=== PATIENT | female | born 1985 | race Caucasian/White ===

== ENCOUNTER → 2018-05-08 | Outpatient (CLI) | payer OTHER ==
--- NOTE | 2018-05-08 13:23 | RADIOLOGY REPORT (SQ) ---
EXAM DESCRIPTION: T SPINE AP/LAT COMPLETED DATE/TIME: 05/08/2018 12:51 pm REASON FOR STUDY: BACK PAIN COMPARISON: None. NUMBER OF VIEWS: Two views. TECHNIQUE: AP and lateral radiographic images acquired of the thoracic spine. LIMITATIONS: None. FINDINGS: MINERALIZATION: Normal. ALIGNMENT: Normal. No scoliosis. VERTEBRAE: No fracture or bone lesion. Maintained height, normal segmentation. DISCS: No significant loss of height or significant narrowing. No large osteophytes. HARDWARE: None in the spine. MEDIASTINUM AND SOFT TISSUES: Normal heart size and aortic contour. No soft tissue abnormality. VISUALIZED LUNG GARNICA: Clear. OTHER: No other significant finding. IMPRESSION: NO SIGNIFICANT RADIOGRAPHIC FINDING IN THE THORACIC SPINE. TECHNICAL DOCUMENTATION: JOB ID: [id number] [employer]- All Rights Reserved Reading location - IP/workstation name: [email or web address]
--- NOTE | 2018-05-08 13:31 | RADIOLOGY REPORT (SQ) ---
EXAM DESCRIPTION: L SPINE WHOLE COMPLETED DATE/TIME: 05/08/2018 12:51 pm REASON FOR STUDY: BACK PAIN COMPARISON: None. NUMBER OF VIEWS: Four views including obliques. TECHNIQUE: AP, lateral, and oblique radiographic images acquired of the lumbar spine. LIMITATIONS: None. FINDINGS: MINERALIZATION: Normal. SEGMENTATION: Normal. No transitional anatomy. ALIGNMENT: Normal. VERTEBRAE: Maintained height. No fracture or worrisome bone lesion. DISCS: Preserved height. No significant osteophytes or end plate irregularity. POSTERIOR ELEMENTS: Pedicles and facets are intact. No pars defect or posterior arch defects. HARDWARE: None in the spine. PARASPINAL SOFT TISSUES: Normal. PELVIS: Intact as visualized. No fractures or worrisome bone lesions. SI joints intact. OTHER: No other significant finding. IMPRESSION: NORMAL 5 VIEW LUMBAR SPINE. TECHNICAL DOCUMENTATION: JOB ID: [id number] [employer]- All Rights Reserved Reading location - IP/workstation name: [email or web address]
== END ==
LOC: RAD 11:16
PROVIDERS: ATTEND Nurse Practitioner
DX: M54.6 Pain in thoracic spine (principal); M54.5 Low back pain
CPT/HCPCS: 72070; 72110

== ENCOUNTER → 2019-01-31 | Outpatient (CLI) | payer OTHER ==
--- NOTE | 2019-01-31 10:21 | RADIOLOGY REPORT (SQ) ---
EXAM DESCRIPTION: MRI LT LOWER JOINT WITHOUT COMPLETED DATE/TIME: 01/31/2019 8:09 am REASON FOR STUDY: PAIN IN LEFT KNEE (M25.562) M25.561 PAIN IN RIGHT KNEE COMPARISON: None. TECHNIQUE: Leftknee images acquired and stored on PACS. Multiplanar images include fat sensitive se quences as T1, water sensitive sequences as FST2 or STIR, cartilage sensitive sequences as FSPD, and gradient echo sequences. LIMITATIONS: None. FINDINGS: JOINT AND BURSAE: No effusion. No Garnica's cyst BONE CORTEX AND MARROW: A well-circumscribed medullary space benign-appearing chondroid lesion is pre sent in the fibular head, 11 mm in greatest diameter. This is best shown on sagittal image 18 and co luzma image 23 ACL: Intact. No degeneration or ganglion cyst. PCL: Intact. MCL: Intact. No periligamentous edema or fluid. LCL: Intact. No periligamentous edema or fluid. MEDIAL MENISCUS: No tears. No abnormal signal. LATERAL MENISCUS: No tears. No abnormal signal. MEDIAL COMPARTMENT: Cartilage preserved. No bone bruises or reactive marrow edema. No osteophytes. LATERAL COMPARTMENT: Cartilage preserved. No bone bruises or reactive marrow edema. No osteophytes. PATELLA: Lateral patellar facet chondromalacia, mild, best shown on axial image 9. There is lateral subluxation of the patella with respect to the distal femur best shown on axial images 8-12. No subc hondral cysts. Medial and lateral retinacula intact. EXTENSOR MECHANISM: Intact. Quadriceps and patella tendons normal. SOFT TISSUES: Adjacent muscles and subcutaneous tissues normal. Normal flow void in popliteal artery and vein. OTHER: No other significant finding. IMPRESSION: Lateral subluxation of the patella with respect to the distal femur. Mild chondromalaci a in the lateral patellar with fat. Incidental finding of an 11 mm benign-appearing chondroid lesion in the left fibular head. TECHNICAL DOCUMENTATION: JOB ID: [id number] [employer]- All Rights Reserved Reading location - IP/workstation name: [email or web address]
== END ==
LOC: RAD 06:57
PROVIDERS: ATTEND Orthopaedic Surgery Sports Medicine
DX: M25.562 Pain in left knee (principal); M22.42 Chondromalacia patellae, left knee

== ENCOUNTER 2019-09-23 06:35 | Emergency (ER) | payer OTHER ==
[2019-09-23 07:13] LABS: APPEARANCE,URINE CLEAR; BILIRUBIN,URINE NEGATIVE (NEGATIVE); COLOR,URINE YELLOW; GLUCOSE, URINE NEGATIVE (NEGATIVE); KETONES,URINE NEGATIVE (NEGATIVE); LEUKOCYTE ESTERASE,URINE NEGATIVE (NEGATIVE); NITRITE,URINE NEGATIVE (NEGATIVE); PROTEIN,URINE NEGATIVE (NEGATIVE); URINE SPECIFIC GRAVITY 1.019; UROBILINOGEN,URINE NEGATIVE mg/dL (<2.0)
[2019-09-23 07:45] LABS: ALBUMIN 4.5 g/dL (3.5-5.0); ALKALINE PHOSPHATASE 39 U/L (38-126); ANION GAP 7 (5-19); ASPARTATE AMINO TRANSFERASE 19 U/L (14-36); BILIRUBIN,TOTAL 2.9 mg/dL (0.2-1.3); BLOOD UREA NITROGEN 12 mg/dL (7-20); CALCIUM 9.5 mg/dL (8.4-10.2); CARBON DIOXIDE 22 mmol/L (22-30); CHLORIDE 110 mmol/L (98-107); GLUCOSE 85 mg/dL (75-110); POTASSIUM 4.3 mmol/L (3.6-5.0); TOTAL PROTEIN 7.4 g/dL (6.3-8.2)
[2019-09-23 08:01] LABS: ABSOLUTE BASOPHILS # (AUTO) 0.1 10^3/uL (0.0-0.2); ABSOLUTE EOSINOPHILS # (AUTO) 0.1 10^3/uL (0.0-0.6); ABSOLUTE LYMPHOCYTES (AUTO) 1.6 10^3/uL (0.5-4.7); ABSOLUTE MONOCYTES (AUTO) 0.4 10^3/uL (0.1-1.4); ABSOLUTE NEUT (AUTO) 4.3 10^3/uL (1.7-8.2); BASOPHILS % (AUTO) 0.9 % (0-2); EOSINOPHILS % (AUTO) 1.9 % (0-6); HEMOGLOBIN 12.1 g/dL (12.0-15.5); LYMPHOCYTES % (AUTO) 24.1 % (13-45); MEAN CORPUSCULAR HEMOGLOBIN 19.5 pg (27.0-33.4); MEAN CORPUSCULAR HGB CONC 32.6 g/dL (32.0-36.0); PLATELET COUNT 196 10^3/uL (150-450); RED CELL DISTRIBUTION WIDTH 16.2 % (11.5-14.0); SEGMENTED NEUTROPHILS % (AUTO) 67.1 % (42-78); TOTAL CELLS COUNTED % (AUTO) 100 %; WHITE BLOOD COUNT 6.5 10^3/uL (4.0-10.5)
[2019-09-23 08:12] LABS: MEAN CORPUSCULAR VOLUME 60 fl (80-97)
[2019-09-23] MEDS ORDERED: RINGERS SOLUTION,LACTATED 1,000 ML IV ONE (08:17)
[2019-09-23 08:19] LABS: ANISOCYTOSIS 1+; OVALOCYTES SLIGHT; POLYCHROMASIA SLIGHT
[2019-09-23 08:20] LABS: HYPOCHROMASIA 1+; PLATELET CLUMPS PRESENT; PLATELET COMMENT ADEQUATE; TEAR DROP CELLS SLIGHT
[2019-09-23] MEDS ORDERED: DEXTROSE 5%-LACTATED RINGERS 1,000 ML IV ONE (10:20)
[2019-09-23] MEDS ORDERED: KETOROLAC TROMETHAMINE INJ/PF 30 MG/1 ML SDV IV ONE (10:22)
--- NOTE | 2019-09-23 11:52 | RADIOLOGY REPORT (SQ) ---
EXAM DESCRIPTION: ABDOMEN 2 VIEWS COMPLETED DATE/TIME: 09/23/2019 10:52 am REASON FOR STUDY: lower abdominal pain COMPARISON: None. NUMBER OF VIEWS: Two views. TECHNIQUE: Supine and erect/decubitus radiographic images of the abdomen acquired. LIMITATIONS: None. FINDINGS: FREE AIR: None. No abnormal gas collections. LUNG BASES: Clear. BOWEL GAS PATTERN: Nonobstructive pattern. No dilated loops or air fluid levels. Moderate formed sto ol within the ascending colon. CALCIFICATIONS: No suspicious calcifications. SOFT TISSUES: No gross mass or suggestion of organomegaly. HARDWARE: None in the abdomen. BONES: No acute fracture. No worrisome bone lesions. OTHER: No other significant finding. IMPRESSION: NO RADIOGRAPHIC EVIDENCE FOR ACUTE ABDOMINAL DISEASE. MODERATE FORMED STOOL WITHIN THE ASCENDING COLON. TECHNICAL DOCUMENTATION: JOB ID: [id number] [employer]- All Rights Reserved Reading location - IP/workstation name: [email or web address]
--- NOTE | 2019-09-23 13:07 | RADIOLOGY REPORT (SQ) ---
EXAM DESCRIPTION: U/S ABDOMEN LIMITED W/O DOP COMPLETED DATE/TIME: 09/23/2019 12:55 pm REASON FOR STUDY: elevated bilirubin COMPARISON: Dominant ultrasound 09/01/2012 CT abdomen pelvis 08/26/2015 Three-way abdomen series 09/23/2019 TECHNIQUE: Dynamic and static grayscale images acquired of the abdomen and recorded on PACS. Additio nal selected color Doppler and spectral images recorded. LIMITATIONS: None. FINDINGS: PANCREAS: Midline pancreas unremarkable LIVER: No masses. Echotexture normal. LIVER VASCULATURE: Normal directional flow of the main portal vein and hepatic veins. GALLBLADDER: Multiple tiny stones layer dependently in the gallbladder. No gallbladder wall thickeni ng or pericholecystic fluid. ULTRASOUND-DETECTED REILLY'S SIGN: Negative. INTRAHEPATIC DUCTS AND COMMON DUCT: Common bile duct at the sonal hepatis 6 mm. Distal most common d uct not well seen due to duodenum gas. Distal ductal stone could not be excluded. INFERIOR VENA CAVA: Normal flow. AORTA: No aneurysm. RIGHT KIDNEY: Normal size. Normal echogenicity. No solid or suspicious masses. No hydronephrosis. No calcifications. PERITONEAL AND RIGHT PLEURAL SPACE: No ascites or effusions. OTHER: No other significant findings. IMPRESSION: Multiple tiny stones in the gallbladder. No gross gallbladder wall thickening or perich olecystic fluid. Distal common duct not well seen. Distal ductal stone could not be excluded. TECHNICAL DOCUMENTATION: JOB ID: [id number] [employer]- All Rights Reserved Reading location - IP/workstation name: [email or web address]
[2019-09-23 13:30] LABS: PATH REVIEW PATHOLOGIST REVIEWED
[2019-09-23] MEDS ORDERED: MORPHINE SULFATE 10 MG/ML INJ IV ONE ×2 (13:44→17:12)
[2019-09-23] MEDS ORDERED: ONDANSETRON HCL INJ/PF 4 MG/2 ML SDV IV ONE ×2 (13:45→17:12)
[2019-09-23] MEDS ORDERED: DEXTROSE 5%-NORMAL SALINE 1,000 ML IV ONE (14:44)
--- NOTE | 2019-09-23 16:54 | PDOC CONSULTATION ---
Consultation Consult Date: 09/23/19 Provider Consulted: SHLOMO CHANG Consult reason:: Back pain and lower abdominal pain History of Present Illness Admission Date/PCP: LEEROY GOLD History of Present Illness: HOANG STALLINGS is a 34 year old female, healthy, without past medical history except for uterine surgery, who comes today complaining of sudden onset of right lower back pain, located to the midline, the patient reports the pain is also radiated to the lower abdomen, she denies pain with urination, hematuria, fever, chills, night sweats. She reports the onset of multiple episodes of nausea this morning. She denies to experiencing similar pain in the past. She denies pain with urination. An ultrasound of the abdomen was done revealing few gallstones without gallbladder complications, her blood work is within normal limits except for isolated alexis-bilirubinemia 2.9 (all unconjugated): Her urinalysis reveals a small amount of blood. Past Medical History Cardiac Medical History: Denies: Coronary Artery Disease, Myocardial Infarction, Hypertension Pulmonary Medical History: Denies: Asthma, Bronchitis, Chronic Obstructive Pulmonary Disease (COPD), Pneumonia Musculoskeltal Medical History: Denies: Arthritis Hematology: Reports: Anemia Social History Smoking Status: Never Smoker Family History Family History: Reviewed & Not Pertinent Family History: Cancer Parental Family History Reviewed: No Children Family History Reviewed: No Sibling(s) Family History Reviewed.: No Medication/Allergy Home Medications: Ibuprofen [Motrin 800 mg Tablet] 800 PO Q8 12/12/12 Pnv W-O Ca No5/Fe Fumarate/FA [-U Capsule] 1 cap PO DAILY 12/12/12 Ondansetron [Zofran Odt 4 mg Tablet] 1 - 2 tab PO Q4H PRN #15 tab.rapdis 04/19/13 Oxycodone HCl 5 mg PO Q6H PRN #20 tablet 04/19/13 Tramadol HCl 50 mg PO PRN 04/19/13 Hydrocodone/Acetaminophen [[place] 7.5-325 Tablet] 1 each PO Q6HP PRN #20 tablet 08/26/15 Allergies/Adverse Reactions: latex [Latex] Allergy (Intermediate, Verified 04/19/13 17:20) Pruritis Physical Exam Vital Signs: Temp Pulse Resp BP Pulse Ox 98.1 F 89 17 125/69 94 09/23/19 09:14 09/23/19 09:14 09/23/19 09:14 09/23/19 09:14 09/23/19 09:14 Intake & Output 09/22/19 09/23/19 09/24/19 06:59 06:59 06:59 Intake Total 1999 Balance 1999 Weight 87.7 kg General appearance: PRESENT: no acute distress, obese, well-developed, well- nourished Head exam: PRESENT: atraumatic, normocephalic Eye exam: PRESENT: EOMI Mouth exam: PRESENT: neck supple Neck exam: PRESENT: full ROM Respiratory exam: PRESENT: clear to auscultation jefe Cardiovascular exam: PRESENT: RRR GI/Abdominal exam: PRESENT: Fitzpatrick's sign, soft - Not distended, not tender, no guarding or grimacing. ABSENT: other - Back = presence of severe tenderness at the level of the lumbar area in the paramedian area with guarding and torsion Rectal exam: PRESENT: deferred Extremities exam: PRESENT: full ROM Musculoskeletal exam: PRESENT: full ROM Neurological exam: PRESENT: alert, awake, oriented to time, CN II-XII grossly intact Skin exam: PRESENT: warm Results Laboratory Results: 09/23/19 07:10 09/23/19 07:10 09/23/19 09/23/19 09/23/19 06:45 07:10 07:10 WBC 6.5 RBC 6.20 H Hgb 12.1 Hct 37.0 MCV 60 L MCH 19.5 L MCHC 32.6 RDW 16.2 H Plt Count 196 Seg Neutrophils % 67.1 Sodium 139.1 Potassium 4.3 Chloride 110 H Carbon Dioxide 22 Anion Gap 7 BUN 12 Creatinine 0.64 Est GFR ( Amer) > 60 Glucose 85 Calcium 9.5 Total Bilirubin 2.9 H AST 19 Alkaline Phosphatase 39 Total Protein 7.4 Albumin 4.5 Lipase 49.7 Urine Color YELLOW Urine Appearance CLEAR Urine pH 5.0 Ur Specific [place] 1.019 Urine Protein NEGATIVE Urine Glucose (UA) NEGATIVE Urine Ketones NEGATIVE Urine Blood SMALL H Urine Nitrite NEGATIVE Ur Leukocyte Esterase NEGATIVE Urine WBC (Auto) 1 Urine RBC (Auto) 1 Impressions: Abdomen X-Ray 09/23/19 10:23 IMPRESSION: NO RADIOGRAPHIC EVIDENCE FOR ACUTE ABDOMINAL DISEASE. MODERATE FORMED STOOL WITHIN THE ASCENDING COLON. Abdomen Ultrasound 09/23/19 12:07 IMPRESSION: Multiple tiny stones in the gallbladder. No gross gallbladder wall thickening or pericholecystic fluid. Distal common duct not well seen. Distal ductal stone could not be excluded. Assessment & Plan - Diagnosis (1) Back pain Qualifiers: Back pain location: low back pain Chronicity: acute Back pain laterality: right Sciatica presence: without sciatica Qualified Code(s): M54.5 - Low b ack pain Is this a current diagnosis for this admission?: Yes (2) Lumbar pain determined by palpation Is this a current diagnosis for this admission?: Yes - Plan Summary Plan Summary: Assessment: Sudden onset of right low back pain in the lumbar area in the paramedian area, elicited on palpation of the muscular group Abdomen soft Negative Fitzpatrick maneuver Abdomen not distended, not tender Blood work within normal limits except for isolated hyperbilirubinemia Ultrasound of the liver reveals cholelithiasis, with negative physiCl exam, most likely incidental Plan: Patient does not present any surgical condition which might warrant any operation I am recommending that the patient undergoes a CT scan without and with venous contrast to rule out the possibility of a kidney stone or kidney condition Also, the possibility of back pain due to muscle spasm cannot be ruled out. Th is diagnosis should be done once the kidney pathology or other pathologies have been ruled out by CT scan. I will sign off.
--- NOTE | 2019-09-23 17:14 | RADIOLOGY REPORT (SQ) ---
EXAM DESCRIPTION: CT ABD/PELVIS COMBO COMPLETED DATE/TIME: 09/23/2019 4:50 pm REASON FOR STUDY: R. flank pain/hematuria/Incr. bilirubin GBstones COMPARISON: None. TECHNIQUE: CT scan of the abdomen and pelvis performed with and without intravenous contrast, and wi thout oral contrast. Contrasted imaging performed helical scanning technique and dynamic intravenous contrast injection. Images reviewed with lung, soft tissue, and bone windows. Reconstructed coronal a nd sagittal MPR images reviewed. Delayed images for evaluation of the urinary system also acquired. A ll images stored on PACS. All CT scanners at this facility use dose modulation, iterative reconstruction, and/or weight based d osing when appropriate to reduce radiation dose to as low as reasonably achievable (ALARA). [facility]: Dose Right [facility]: CareDose [facility]: Dose Right [facility]: Teradose 4D [facility]: [employer] CONTRAST TYPE AND DOSE: contrast/concentration: Isovue 350.00 mg/ml; Total Contrast Delivered: 100.0 ml; Total Saline Delivered: 72.0 ml RENAL FUNCTION: Creatinine 0.64 RADIATION DOSE: CT Rad equipment meets quality standard of care and radiation dose reduction techniq ues were employed. CTDIvol: 11.2 - 14.7 mGy. DLP: 2114 mGy-cm. . LIMITATIONS: None. FINDINGS: NON-CONTRASTED IMAGING: No significant renal or bladder calcifications. No other significa nt organ calcifications. POST-CONTRASTED IMAGING: LOWER CHEST: No significant findings. No nodules or infiltrates. LIVER: Normal size. No masses. No dilated ducts. SPLEEN: Normal size. No focal lesions. PANCREAS: No masses. No significant calcifications. No adjacent inflammation or peripancreatic fluid collections. Pancreatic duct not dilated. GALLBLADDER: Multiple tiny calcified stones in the gallbladder. No inflammatory changes to suggest ch olecystitis. ADRENAL GLANDS: No significant masses or asymmetry. RIGHT KIDNEY AND URETER: No solid masses. No significant calcifications. No hydronephrosis or hyd roureter. LEFT KIDNEY AND URETER: No solid masses. No significant calcifications. No hydronephrosis or hydr oureter. AORTA AND VESSELS: No aneurysm. No dissection. Renal arteries, SMA, celiac without stenosis. RETROPERITONEUM: No retroperitoneal adenopathy, hemorrhage or masses. BOWEL AND PERITONEAL CAVITY: No masses or inflammatory changes. No free fluid or peritoneal masses. APPENDIX: Normal, on coronal image 28. PELVIS: No mass. No adenopathy. Normal urinary bladder. Normal size uterus and ovaries. There is a moderate amount of near water density free cul-de-sacs fluid, and enhancing follicle remnant on the left ovary seen on axial image 70-73. Findings most likely represent a ruptured ovarian cyst, discu ssed with Dr. Castillo in the emergency room. ABDOMINAL WALL: No masses. No hernias. BONES: No significant or acute findings. OTHER: No other significant finding. IMPRESSION: Free cul-de-sac fluid with probable ruptured left ovarian follicle remnant. Multiple tiny calcified stones in the gallbladder. No intrahepatic biliary ductal dilatation. Otherwise unremarkable CT of the abdomen and pelvis without and with IV contrast TECHNICAL DOCUMENTATION: JOB ID: [id number] Quality ID # [id number]: Final reports with documentation of one or more dose reduction techniques (e.g., Au tomated exposure control, adjustment of the mA and/or kV according to patient size, use of iterative reconstruction technique) 2010 [employer]- All Rights Reserved Reading location - IP/workstation name: [email or web address]
[2019-09-23 17:59] VITALS: BP 127/67
--- NOTE | 2019-09-24 13:35 | ER Document Report ---
Entered by ELIJAH PETERSON SCRIBE 09/23/19 0741 Acting as scribe for:ANTONY JIMÉNEZ MD ED GI/ - General Chief Complaint: Vomiting Stated Complaint: ABDOMINAL Primary Care Provider: BISHNU GARCIA MD [NO LOCAL MD] - Follow up as needed Mode of Arrival: Ambulatory Information source: Patient Notes: This 34-year-old female patient presents to the emergency department today with complaints of a migraine headache for the last few days with associated nausea and vomiting which began yesterday. Patient states she feels like she is dehydrated. Patient also complains of lower abdominal cramping. Patient states she becomes dizzy when she vomits. Patient states she has had migraines for several years and they sometimes are accompanied with this nausea and vomiting. Patient states "the reason I came in today is because of the abdominal cramping, it scared me", stating that she has never had this happen before. Patient denies any nasal congestion, vaginal bleeding, or vaginal discharge. Pertinent PMHx/PSHx: Migraines - additional PMHx/PSHx not pertinent to this visit as recorded. PCP: [facility] TRAVEL OUTSIDE OF THE [place] IN LAST 30 DAYS: No - Related Data Allergies/Adverse Reactions: latex [Latex] Allergy (Intermediate, Verified 04/19/13 17:20) Pruritis Past Medical History - General Information source: Patient - Social History Smoking Status: Never Smoker Cigarette use (# per day): No Frequency of alcohol use: None Drug Abuse: None Lives with: Family Family History: Reviewed & Not Pertinent Patient has suicidal ideation: No Patient has homicidal ideation: No Neurological Medical History: Reports: Hx Migraine GI Medical History: Reports: Hx Ulcer Past Surgical History: Reports: Hx Dilation and Curettage - Immunizations Immunizations up to date: Yes Hx Diphtheria, Pertussis, Tetanus Vaccination: Yes Review of Systems - Review of Systems Constitutional: See HPI, Other - thinks she is dehydrated EENT: denies: Nose congestion Cardiovascular: See HPI, Dizziness Respiratory: No symptoms reported Gastrointestinal: See HPI, Nausea, Vomiting, Other - abdominal cramps Genitourinary: No symptoms reported Female Genitourinary: denies: Vaginal discharge, Vaginal bleeding Musculoskeletal: No symptoms reported Skin: No symptoms reported Hematologic/Lymphatic: No symptoms reported Neurological/Psychological: See HPI, Headaches -: Yes All other systems reviewed and negative Physical Exam - Vital signs Vitals: Temp Pulse Resp BP Pulse Ox 98.6 F 89 16 132/88 H 99 09/23/19 06:39 09/23/19 06:39 09/23/19 06:39 09/23/19 06:39 09/23/19 06:39 - Notes Notes: Physical Exam: General: Alert, appears well. HEENT: Normocephalic. Atraumatic. PERRL. Extraocular movements intact. Or opharynx clear. Left TM is normal in appearance, Serous effusion on the right. Tonsillar pillars are erythematous without lymphadenopathy, exudate, or tonsillar hypertrophy. Neck: Supple. Non-tender. Respiratory: No respiratory distress. Clear and equal breath sounds bilaterally. Cardiovascular: Regular rate and rhythm. Abdominal: Normal Inspection. Non-tender. No distension. Normal Bowel Sounds. Back: No gross abnormalities. Extremities: Moves all four extremities. Upper extremities: Normal inspection. Normal ROM. Lower extremities: Normal inspection. No edema. Normal ROM. Neurological: Normal cognition. AAOx4. Normal speech. Psychological: Normal affect. Normal Mood. Skin: Warm. Dry. Normal color. Course - Re-evaluation Re-evalutation: 09/23/19 14:[address] Villalta the surgical list of the day who will be in to see the patient regarding her elevated bilirubin. Ultrasound did disclose the patient has multiple tiny gallstones present and also the bile duct was not well visualized. There is no evidence for acute cholecystitis with a normal bladder wall without thickening and no pericholecystic fluid seen. Per discussion with Dr. Villalta he is going to evaluate patient and perhaps get the nuclear instructor involved because his opinion is that patient perhaps has a medical reason for her elevated bilirubin. 09/23/19 16:17 Patient has been seen by Dr. Villalta, surgical is who requested patient have further scans done including abdomen and pelvis without contrast then and abdomen and pelvis with contrast. The goal is to determine the patient has kidney stones encountered G you problem and also to to determine if there is any biliary tree obstruction or gallbladder issues. 09/23/19 17:13 CT abdomen pelvis with and without contrast disclose cul-de-sac full of fluid consistent with the density of water and most likely due to a ruptured ovarian cyst follicle. There is no kidney stone or ureterolithiasis seen on CT scan no no swelling of the kidneys or dilated ureters. Also seen again as was seen on ultrasound gallbladder disease with cholelithiasis and no cholecystitis present no dilated biliary ducts. Most likely elevated bilirubin may be related to Gilbert's disease which patient is going to follow-up with her internal medicine doctor. Patient is also instructed to follow-up with her OB mill tender regarding her ruptured ovarian cyst. Patient will be given a work note x3 days and placed on anti-inflammatory and pain medications. 09/23/19 17:31 CT scan results were discussed with Dr. Villalta who is in agreement the patient does not have a surgical problem at this time. - Vital Signs Vital signs: Temp Pulse Resp BP Pulse Ox 98.1 F 89 17 125/69 94 09/23/19 09:14 09/23/19 09:14 09/23/19 09:14 09/23/19 09:14 09/23/19 09:14 - Laboratory Result Diagrams: 09/23/19 07:10 09/23/19 07:10 Laboratory results interpreted by me: 09/23/19 09/23/19 09/23/19 06:45 07:10 07:10 RBC 6.20 H MCV 60 L MCH 19.5 L RDW 16.2 H Chloride 110 H Total Bilirubin 2.9 H Urine Blood SMALL H - Transfer of Care Notes: 09/23/19 16:19 Dr. Timoteo Preciado is receiving patient and in transfer to follow-up on pending studies and to coordinate consult with Dr. Villalta, surgical list Discharge - Discharge Clinical Impression: Cholelithiasis, Abdominal pain, Hematuria, Elevated bilirubin, Ruptured cyst of ovary Condition: Good Disposition: HOME, SELF-CARE Instructions: Abdominal Pain ([facility]), Gallbladder Disease ([facility]), Antinausea Medication ([facility]) Additional Instructions: Recommend you to follow-up with your primary care doctor/physician's assistant regarding gallbladder disease and elevated bilirubin. Inasmuch as there is no evidence for any biliary tree obstruction the elevated bilirubin could be due to a medical cause such as Gilbert's disease. Abdominal Pain There are many causes of abdominal pain. Pain can mean a serious problem requiring surgery (such as appendicitis). It can also be an innocent problem that goes away on its own (such as a viral infection). Often, time must pass to determine the cause of pain. The physician does not feel that hospitalization is necessary, at present. Things may change within the next 24 hours. Call the doctor or come back for re- examination if any problems occur, such as: (1) Pain that becomes more severe, steady, or becomes concentrated in one specific area. Also, pain that is more severe with movement or coughing. (2) Vomiting that persists or becomes more frequent. (3) Blood in the vomitus, urine, or bowel movements. Blood in the stool may have a tarry or black appearance. (4) Shaking chills or fever greater than 100 degrees F. (5) The abdomen becomes more distended or swollen. (6) Bowel movements cease. (7) Failure to improve as expected. Gallbladder Disease Your evaluation shows evidence of gallbladder disease. The gallbladder is a pouch under the liver which stores bile. Stones, infection, or irritation of the gallbladder cause attacks of pain. Certain foods -- fats in particular -- may provoke attacks. The usual treatment for gallbladder disease is surgical removal of the gallbladder -- called a cholecystectomy. You will be referred to a physician qualified to advise you on the best treatment for your problem. Hospitalization is not necessary. Take clear liquids only until you are painfree. After that, you should stay on a low-fat diet, with frequent SMALL meals. Call the doctor or return at once if you develop severe pain, repeated vomiting, fever, or jaundice (a yellow color in the skin and whites of the eyes). Ovarian Cyst Your examination shows the presence of an ovarian cyst. This is a ball of fluid attached to the ovary. Ovarian cysts in women of child-bearing age are usually innocent. However, the cyst may cause pain when it grows or bursts. An innocent ovarian cyst will usually go away by itself. When the cyst becomes painful, you should rest. Pain medication may be required. Some women find a hot water bottle soothing. The pain usually resolves within one or two days. After menopause, an ovarian cyst may mean a tumor, and requires more aggressive evaluation -- usually surgery is recommended to remove or biopsy the cyst. A very large cyst requires evaluation at any age. Most cysts (even the innocent ones) require follow-up examination. Call the doctor or return at any time if the pain increases significantly, if you become faint, or if you experience vaginal bleeding. Recommend follow-up with primary care doctor/physician's assistant regarding elevated bilirubin. Inasmuch as no biliary tree obstruction was learned today on studies the elevated bilirubin without any other abnormality about the liver or biliary tree could represent a medical problem such as Gilbert's disease. Also recommend follow-up with OB mill tender regarding ruptured ovarian cyst. You have been placed on pain medications of Percocet/ibuprofen as an anti- inflammatory/an antibiotic Augmentin to prevent infection developing. Prescriptions: Amoxicillin/Potassium Clav [Augmentin 500-125 Tablet] 1 each PO TID 7 Days #21 tablet Ibuprofen [Motrin 800 mg Tablet] 800 mg PO Q8H PRN #30 tab PRN Reason: Oxycodone HCl/Acetaminophen [Percocet 5-325 mg Tablet] 1 tab PO ASDIR PRN #15 tab PRN Reason: Ondansetron HCl [Zofran] 8 mg PO TID PRN 5 Days #15 tablet PRN Reason: Forms: Return to Work Referrals: BISHNU GARCIA MD [NO LOCAL MD] - Follow up as needed I personally performed the services described in the documentation, reviewed and edited the documentation which was dictated to the scribe in my presence, and it accurately records my words and actions.
== END 2019-09-23 17:59 | disposition home or self-care (01) ==
LOC: ER 06:35
DX: K80.20 Calculus of gallbladder without cholecystitis without obstruction (principal); N83.209 Unspecified ovarian cyst, unspecified side; R11.2 Nausea with vomiting, unspecified; R31.9 Hematuria, unspecified; R79.89 Other specified abnormal findings of blood chemistry; G43.909 Migraine, unspecified, not intractable, without status migrainosus; R10.30 Lower abdominal pain, unspecified; R42 Dizziness and giddiness; Z91.040 Latex allergy status; Z79.1 Long term (current) use of non-steroidal anti-inflammatories (NSAID); Z79.899 Other long term (current) drug therapy
CPT/HCPCS: 96376; 99285; 96361; 96374; 96375; 36415; 83690; 85025; 81025; 80053; 81001; 74019; 76705; 74178; J1885; J2270; J2405; J7042; J7121; J7120

== ENCOUNTER 2019-11-23 13:39 | Emergency (ER) | payer OTHER ==
--- NOTE | 2019-11-23 16:03 | RADIOLOGY REPORT (SQ) ---
EXAM DESCRIPTION: CHEST SINGLE VIEW IMAGES COMPLETED DATE/TIME: 11/23/2019 2:50 pm REASON FOR STUDY: cough COMPARISON: 01/01/2016 EXAM PARAMETERS: NUMBER OF VIEWS: One view. TECHNIQUE: Single frontal radiographic view of the chest acquired. RADIATION DOSE: NA LIMITATIONS: None. FINDINGS: LUNGS AND PLEURA: No opacities, masses or pneumothorax. No pleural effusion. MEDIASTINUM AND HILAR STRUCTURES: No masses. Contour normal. HEART AND VASCULAR STRUCTURES: Heart normal in size. Normal vasculature. BONES: No acute findings. HARDWARE: None in the chest. OTHER: No other significant finding. IMPRESSION: NO ACUTE RADIOGRAPHIC FINDING IN THE CHEST. TECHNICAL DOCUMENTATION: JOB ID: [id number] 2010 [employer]- All Rights Reserved Reading location - IP/workstation name: [email or web address]
[2019-11-23 17:10] LABS: A TYPE INFLUENZA AG NEGATIVE (NEGATIVE); B INFLUENZA AG NEGATIVE (NEGATIVE)
[2019-11-23] MEDS ORDERED: CEFTRIAXONE INJ 1000 MG VIAL IM ONE (19:08)
[2019-11-23] MEDS ORDERED: ACETAMINOPHEN 325 MG TABLET PO ONE (19:09)
[2019-11-23] MEDS ORDERED: DEXAMETHASONE SOD PHOS INJ 10 MG/1 ML VIAL IM ONE (19:09)
[2019-11-23] MEDS ORDERED: LIDOCAINE 1% INJ (10 MG/ML) 10 ML MDV ONE (20:05)
--- NOTE | 2019-11-23 20:37 | ER Document Report ---
Entered by EVY SHANE SCRIBE 11/23/19 1517 Acting as scribe for:ANTONY JIMÉNEZ MD ED General - General Chief Complaint: Painful Cough Stated Complaint: COUGH/CHEST PAIN Time Seen by Provider: 11/23/19 14:03 Primary Care Provider: LEEROY GOLD PA-C [Primary Care Provider] - Follow up as needed Information source: Patient Notes: This 34-year-old female presents to the emergency department with a chief complaint of shortness of breath that began this morning. Patient was seen yesterday by a primary care physician for cough, chest wall pain and bilateral rib pain. Patient reports that she was negative for influenza and strep throat at the appointment yesterday. Patient was diagnosed with pneumonia as per chest X-ray yesterday at the appointment and given prednisone, tessalon perles, doxycline. 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 Patient has been working from home since her symptom s began. TRAVEL OUTSIDE OF THE [place] IN LAST 30 DAYS: No - Related Data Allergies/Adverse Reactions: latex [Latex] Allergy (Intermediate, Verified 04/19/13 17:20) Pruritis Past Medical History - General Information source: Patient - Social History Smoking Status: Never Smoker Cigarette use (# per day): No Chew tobacco use (# tins/day): No Frequency of alcohol use: None Drug Abuse: None Family History: Reviewed & Not Pertinent Patient has suicidal ideation: No Patient has homicidal ideation: No Neurological Medical History: Reports: Hx Migraine GI Medical History: Reports: Hx Ulcer Past Surgical History: Reports: Hx Dilation and Curettage - Immunizations Immunizations up to date: Yes Hx Diphtheria, Pertussis, Tetanus Vaccination: Yes Review of Systems - Review of Systems Constitutional: No symptoms reported EENT: No symptoms reported Cardiovascular: See HPI, Chest pain Respiratory: See HPI, Cough, Hurts to breathe, Short of breath Gastrointestinal: No symptoms reported Genitourinary: No symptoms reported Female Genitourinary: No symptoms reported Musculoskeletal: No symptoms reported Skin: No symptoms reported Hematologic/Lymphatic: No symptoms reported Neurological/Psychological: No symptoms reported -: Yes All other systems reviewed and negative Physical Exam - Vital signs Vitals: Temp Pulse Resp BP Pulse Ox 98.7 F 112 H 12 147/94 H 99 11/23/19 13:51 11/23/19 13:51 11/23/19 13:51 11/23/19 13:51 11/23/19 13:51 - Notes Notes: Physical Exam: General: Alert, appears well. HEENT: Normocephalic. Atraumatic. PERRL. Extraocular movements intact. Pharynx has mild erythema. Trace clear mucus in nostrils. Neck: Supple. Non-tender. Respiratory: No respiratory distress. Diminished breath sounds in the bases bilaterally with wheezes. Patient is unable to take a deep breath without coughing. Cardiovascular: Regular rate and rhythm. Abdominal: Normal Inspection. Non-tender. No distension. Normal Bowel Sounds. Back: No gross abnormalities. Extremities: Moves all four extremities. Upper extremities: Normal inspection. Normal ROM. Lower extremities: Normal inspection. No edema. Normal ROM. Neurological: Normal cognition. AAOx4. Normal speech. Psychological: Normal affect. Normal Mood. Skin: Warm. Dry. Normal color. 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 Plan is to do a coronavirus [id number] 19 test. Patient advised to self quarantine over the next 14 days. The coronavirus testing may take up to 1 week before results are known. Patient is advised to wear a mask as and when out in public. - Diagnostic Test Radiology reviewed: Image reviewed, Reports reviewed Radiology results interpreted by me: 11/23/19 20:28 Chest x-ray no acute process no infiltrate noted. Discharge - Discharge Clinical Impression: Acute bronchitis, Bronchospasm, Cough Condition: Good Disposition: HOME, SELF-CARE Additional Instructions: Cough Suppressant/Expectorant Medication You are to use a cough medication as needed for relief of symptoms. This medicine is a combination of an expectorant (to make the mucous thinner and more easily "coughed up") and a cough suppressant (to reduce the frequency of coughing). The cough-suppressant medicine is related to narcotics. You may experience mild nausea and sleepiness. Some patients who are very sensitive to narcotics may have stomach pain from this medicine. Taking the medicine with food reduces these side effects. Do not drive or work with machinery until you know how this medicine affects you. The expectorant should have no side effects. Iodine-containing expectorants (such as organidin) should not be taken by persons with active thyroid disease unless approved by your doctor. Call the doctor if you develop shortness of breath, hives, rash, itching, lightheadedness, or severe nausea and vomiting.Bronchitis with Bronchospasm (Wheezing) You have bronchitis with bronchospasm (wheezing). Sometimes people develop wheezing with a chest cold. This occurs either because of an underlying tendency toward asthma or because the virus itself irritates the bronchial tubes. This irritation causes cough, shortness of breath, and wheezing. Emergency treatment of bronchospasm may include adrenaline shots or bronchodilator aerosol. You may feel lightheaded and have a rapid pulse for an hour or two. Rest and get plenty of fluids. At home, we'll treat you with a bronchodilator inhaler. Corticosteroids may be required for some patients. Until you recover, avoid chemical fumes, dusts, pollens, and exercising in very cold or dry air. If you smoke, stop now! Most cases of bronchitis get better without antibiotics. We prescribe antibiotics when we believe bacteria are damaging your airways, or if there's high risk the bronchitis will worsen into pneumonia. Increase your fluid intake. A cool mist humidifier may make your lungs more comfortable. An expectorant (cough medicine that loosens phlegm) can help. Repeated episodes of bronchitis and bronchospasm may result in lung damage -- for example, chronic bronchitis, recurrent pneumonias, or emphysema. If you develop a fever, increased wheezing, chest pain, or severe shortness of breath, you should contact the doctor immediately. You are to continue your treatment plan that you already have which includes steroid, Tessalon Perles, and doxycycline,. In addition a metered-dose inhaler of albuterol is being prescribed to assist in controlling your cough and you are to take 2 inhalations 4 times a day as needed for cough. Increase fluids, rest, and begin high-dose vitamin C [id number] medication 1000 mg twice a day for the next 2 weeks. Also I highly recommend hot green tea with squeeze lemon or [place], honey to taste. Also begin [id number] Delsym cough syrup as directed for cough as needed It is necessary for you to quarantine yourself over the next 14 days and be excuse from work. Prescriptions: Albuterol Sulfate [Proair HFA Inhalation Aerosol 8.5 gm MDI] 2 puff IH Q4H PRN #1 mdi PRN Reason: Forms: Return to Work Referrals: LEEROY GOLD PA-C [Primary Care Provider] - Follow up as needed I personally performed the services described in the documentation, reviewed and edited the documentation which was dictated to the scribe in my presence, and it accurately records my words and actions.
[2019-11-23 20:59] VITALS: BP 129/78
== END 2019-11-23 20:55 | disposition home or self-care (01) ==
LOC: ER 13:39
DX: J20.9 Acute bronchitis, unspecified (principal); R07.9 Chest pain, unspecified; Z20.828 Contact with and (suspected) exposure to other viral communicable diseases; Z91.040 Latex allergy status
CPT/HCPCS: 99284; 96372; 87070; 87880; 87635; 87804; 71045; J0696; J1100

== ENCOUNTER 2020-01-26 16:30 | Emergency (ER) | payer OTHER ==
[2020-01-26] MEDS ORDERED: NORMAL SALINE 1000 ML 1,000 ML IV ONE (17:07)
[2020-01-26] MEDS ORDERED: KETOROLAC TROMETHAMINE INJ/PF 30 MG/1 ML SDV IV ONE (17:07)
[2020-01-26] MEDS ORDERED: ONDANSETRON HCL INJ/PF 4 MG/2 ML SDV IV ONE (17:07)
--- NOTE | 2020-01-26 17:10 | ER Document Report ---
ED GI/ - General Chief Complaint: Abdominal Pain Stated Complaint: ABDOMINAL PAIN Time Seen by Provider: 01/26/20 16:58 Primary Care Provider: JAVIER KENNEDY PA-C [Primary Care Provider] - Follow up as needed Mode of Arrival: Ambulatory Information source: Patient Notes: Otherwise healthy 34-year-old female with history of ovarian cyst presents to the emergency department with right lower quadrant abdominal pain that began 2 days ago. Patient reports this feels similar to when she had an ovarian cyst in the past. She reports associated nausea due to the pain but denies any abdominal pain or vomiting. She reports normal bowel movements. Denies fever or chills. She states she has tried multiple uena-bcd-yaqtiey remedies such as Tylenol, ibuprofen, applying heat to the area without relief. TRAVEL OUTSIDE OF THE [place] IN LAST 30 DAYS: No - Related Data Allergies/Adverse Reactions: latex [Latex] Allergy (Intermediate, Verified 04/19/13 17:20) Pruritis Past Medical History - General Information source: Patient - Social History Smoking Status: Never Smoker Frequency of alcohol use: None Drug Abuse: None Family History: Reviewed & Not Pertinent - Past Medical History Cardiac Medical History: Denies: Hx Coronary Artery Disease, Hx Heart Attack, Hx Hypertension Pulmonary Medical History: Denies: Hx Asthma, Hx Bronchitis, Hx COPD, Hx Pneumonia Neurological Medical History: Reports: Hx Migraine. Denies: Hx Cerebrovascular Accident Renal/ Medical History: Reports: Hx Ovarian Cysts GI Medical History: Reports: Hx Ulcer Musculoskeletal Medical History: Denies Hx Arthritis Past Surgical History: Reports: Hx Dilation and Curettage, Hx Gynecologic Surgery - Uterine repair - Immunizations Immunizations up to date: Yes Hx Diphtheria, Pertussis, Tetanus Vaccination: Yes Review of Systems - Review of Systems Gastrointestinal: Nausea Genitourinary: Pain - RLQ/pelvis Physical Exam - Vital signs Vitals: Temp Pulse Resp BP Pulse Ox 98.7 F 88 20 120/72 100 01/26/20 16:36 01/26/20 16:36 01/26/20 16:36 01/26/20 16:36 01/26/20 16:36 - Notes Notes: PHYSICAL EXAMINATION: GENERAL: Well-appearing, well-nourished and in no acute distress. HEAD: Atraumatic, normocephalic. EYES: Pupils equal round and reactive to light, extraocular movements intact, conjunctiva are normal. ENT: Nares patent, oropharynx clear without exudates. Moist mucous membranes. NECK: Normal range of motion, supple without lymphadenopathy LUNGS: Breath sounds clear to auscultation bilaterally and equal. No wheezes rales or rhonchi. HEART: Regular rate and rhythm without murmurs ABDOMEN: Soft, nontender, nondistended abdomen. No guarding, no rebound. No masses appreciated. Female : Tenderness to palpation in the right pelvic region. Musculoskeletal: Normal range of motion, no pitting or edema. No cyanosis. NEUROLOGICAL: Cranial nerves grossly intact. Normal speech, normal gait. Normal sensory, motor exams PSYCH: Normal mood, normal affect. SKIN: Warm, Dry, normal turgor, no rashes or lesions noted. Course - Vital Signs Vital signs: Temp Pulse Resp BP Pulse Ox 98.0 F 81 16 142/79 H 100 01/26/20 17:49 01/26/20 17:08 01/26/20 17:08 01/26/20 17:08 01/26/20 17:08 - Laboratory Result Diagrams: 01/26/20 17:00 01/26/20 17:00 Laboratory results interpreted by me: 01/26/20 01/26/20 01/26/20 17:00 17:00 17:00 RBC 5.75 H Hgb 11.2 L Hct 34.4 L MCV 60 L MCH 19.5 L RDW 15.8 H Sodium 136.9 L Total Bilirubin 2.3 H Alkaline Phosphatase 33 L Urine Blood SMALL H Discharge - Discharge Clinical Impression: Abdominal pain Qualifiers: Abdominal location: right lower quadrant Qualified Code(s): R10.31 - Right lower quadrant pain Condition: Stable Disposition: HOME, SELF-CARE Additional Instructions: Pelvic Pain There are many causes of pain in the pelvic area. The cause could be the tubes, ovaries, uterus, intestines, appendix, pelvic muscles and connective tissue, or the urinary tract. The cause of your pelvic pain is not clear. However, it seems safe to treat you outside the hospital. If the pain sounds like a temporary problem, we sometimes wait to see if it goes away. Other patients may need additional tests, such as pelvic ultrasound or cultures. All of your test today have come back normal. Conditions may change. Call us or come back for reexamination if any problems occur, such as: (1) Pain that becomes more severe, steady, or becomes concentrated in one specif ic area. Also, pain that is more severe with movement or coughing. (2) Vomiting that persists or becomes more frequent. (3) Blood in the vomitus, urine, or bowel movements. Blood in the stool may have a tarry or black appearance. (4) Shaking chills or fever greater than 100 degrees. (5) The abdomen becomes more distended or swollen. (6) Bowel movements cease. (7) Heavy vaginal bleeding. Take medications as prescribed. Call and schedule an appointment with your [employer] provider for a reevaluation. Return to the emergency department with any of the above warning signs. Prescriptions: Oxycodone HCl/Acetaminophen [Percocet 5-325 mg Tablet] 1 tab PO Q6H PRN #12 tablet PRN Reason: Ondansetron [Zofran Odt 4 mg Tablet] 1 - 2 tab PO Q4H PRN #15 tab.rapdis PRN Reason: For Nausea/Vomiting Forms: Return to Work Referrals: JAVIER KENNEDY PA-C [Primary Care Provider] - Follow up as needed
[2020-01-26 17:17] VITALS: BP 142/79
[2020-01-26 17:41] LABS: ABSOLUTE BASOPHILS # (AUTO) 0.1 10^3/uL (0.0-0.2); ABSOLUTE EOSINOPHILS # (AUTO) 0.1 10^3/uL (0.0-0.6); ABSOLUTE LYMPHOCYTES (AUTO) 2.1 10^3/uL (0.5-4.7); ABSOLUTE MONOCYTES (AUTO) 0.4 10^3/uL (0.1-1.4); ABSOLUTE NEUT (AUTO) 4.2 10^3/uL (1.7-8.2); BASOPHILS % (AUTO) 1.4 % (0-2); EOSINOPHILS % (AUTO) 1.9 % (0-6); HEMATOCRIT 34.4 % (36.0-47.0); HEMOGLOBIN 11.2 g/dL (12.0-15.5); LYMPHOCYTES % (AUTO) 30.5 % (13-45); MEAN CORPUSCULAR HEMOGLOBIN 19.5 pg (27.0-33.4); MEAN CORPUSCULAR HGB CONC 32.7 g/dL (32.0-36.0); MEAN CORPUSCULAR VOLUME 60 fl (80-97); PLATELET COUNT 236 10^3/uL (150-450); RED BLOOD COUNT 5.75 10^6/uL (3.72-5.28); RED CELL DISTRIBUTION WIDTH 15.8 % (11.5-14.0); SEGMENTED NEUTROPHILS % (AUTO) 60.2 % (42-78); TOTAL CELLS COUNTED % (AUTO) 100 %; WHITE BLOOD COUNT 6.9 10^3/uL (4.0-10.5)
[2020-01-26 17:43] LABS: APPEARANCE,URINE SLIGHTLY-CLOUDY; BILIRUBIN,URINE NEGATIVE (NEGATIVE); COLOR,URINE YELLOW; GLUCOSE, URINE NEGATIVE (NEGATIVE); KETONES,URINE NEGATIVE (NEGATIVE); LEUKOCYTE ESTERASE,URINE NEGATIVE (NEGATIVE); NITRITE,URINE NEGATIVE (NEGATIVE); PROTEIN,URINE NEGATIVE (NEGATIVE); URINE SPECIFIC GRAVITY 1.016; UROBILINOGEN,URINE NEGATIVE mg/dL (<2.0)
[2020-01-26 17:57] LABS: ALBUMIN 4.5 g/dL (3.5-5.0); ALKALINE PHOSPHATASE 33 U/L (38-126); ANION GAP 6 (5-19); ASPARTATE AMINO TRANSFERASE 25 U/L (14-36); BILIRUBIN,TOTAL 2.3 mg/dL (0.2-1.3); BLOOD UREA NITROGEN 12 mg/dL (7-20); CALCIUM 9.5 mg/dL (8.4-10.2); CARBON DIOXIDE 24 mmol/L (22-30); CHLORIDE 107 mmol/L (98-107); GLUCOSE 93 mg/dL (75-110); POTASSIUM 4.4 mmol/L (3.6-5.0); TOTAL PROTEIN 7.2 g/dL (6.3-8.2)
[2020-01-26 17:59] LABS: ANISOCYTOSIS SLIGHT; HYPOCHROMASIA 3+; TOXIC GRANULATION 1+; TOXIC VACUOLATION PRESENT
[2020-01-26 18:00] LABS: OVALOCYTES 2+; PLATELET COMMENT ADEQUATE; PLATELET GIANT PRESENT
--- NOTE | 2020-01-26 18:16 | RADIOLOGY REPORT (SQ) ---
EXAM DESCRIPTION: U/S NON OB PEL TV W/DOPPLER IMAGES COMPLETED DATE/TIME: 01/26/2020 5:54 pm REASON FOR STUDY: RLQ pain COMPARISON: None. TECHNIQUE: Dynamic and static grayscale images acquired of the pelvis via transvaginal approach and recorded on PACS. Additional selected color Doppler and spectral images recorded. LIMITATIONS: None. FINDINGS: UTERUS: Contour normal. No mass. ENDOMETRIAL STRIPE: No focal or generalized thickening. No masses. CERVIX: No nabothian cysts. RIGHT OVARY AND DOPPLER: Normal size. No worrisome masses. Normal arterial vascular flow without evid ence for torsion. LEFT OVARY AND DOPPLER: Normal size. No worrisome masses. Normal arterial vascular flow without evide nce for torsion. FREE FLUID: None noted. OTHER: No other significant finding. MEASUREMENTS: UTERUS: 7.8 x 4 x 5.1 cm ENDOMETRIAL STRIPE: 1 cm RIGHT OVARY: 2.6 x 3.1 x 2.2 cm LEFT OVARY: 2.1 x 3.6 x 3 cm IMPRESSION: UNREMARKABLE TRANSVAGINAL PELVIC ULTRASOUND. TECHNICAL DOCUMENTATION: JOB ID: [id number] [employer]- All Rights Reserved Rev-01/05 Reading location - IP/workstation name: [email or web address]
--- NOTE | 2020-01-26 19:31 | RADIOLOGY REPORT (SQ) ---
EXAM DESCRIPTION: CT ABD/PELVIS WITH IV ONLY IMAGES COMPLETED DATE/TIME: 01/26/2020 7:00 pm REASON FOR STUDY: RLQ abd pain COMPARISON: 08/26/2015 TECHNIQUE: CT scan of the abdomen and pelvis performed using helical scanning technique with dynamic intravenous contrast injection. No oral contrast. Images reviewed with lung, soft tissue, and bone w indows. Reconstructed coronal and sagittal MPR images reviewed. Delayed images for evaluation of the urinary system also acquired. All images stored on PACS. All CT scanners at this facility use dose modulation, iterative reconstruction, and/or weight based d osing when appropriate to reduce radiation dose to as low as reasonably achievable (ALARA). [facility]: Dose Right [facility]: CareDose [facility]: Dose Right [facility]: Teradose 4D [facility]: DocTree CONTRAST TYPE AND DOSE: 100 mL Isovue 370- low osmolar. RENAL FUNCTION: None required. The patient is less than 50 years old. RADIATION DOSE: CT Rad equipment meets quality standard of care and radiation dose reduction techniq ues were employed. CTDIvol: 9.2 - 12.3 mGy. DLP: 1270 mGy-cm.. LIMITATIONS: None. FINDINGS: LOWER CHEST: No significant findings. LIVER: Normal size. No enhancing masses. No dilated ducts. SPLEEN: Normal size. No focal lesions. PANCREAS: No masses identified. No significant calcifications. No adjacent inflammation or peripancre atic fluid collections. Pancreatic duct not dilated. GALLBLADDER: No calcified stones. No inflammatory changes to suggest cholecystitis. ADRENAL GLANDS: No significant masses. RIGHT KIDNEY AND URETER: No cysts identified. No solid masses identified. No calcified stones. No hyd ronephrosis or hydroureter. LEFT KIDNEY AND URETER: No cysts identified. No solid masses identified. No calcified stones. No hydr onephrosis or hydroureter. AORTA AND VESSELS: No aneurysm. No dissection. Renal arteries, SMA, celiac without significant stenos is. RETROPERITONEUM: No bulky retroperitoneal adenopathy. BOWEL AND PERITONEAL CAVITY: No obstruction or inflammatory changes. No free fluid. APPENDIX: Normal. PELVIS: No mass. No free fluid. Unremarkable bladder. ABDOMINAL WALL: No masses. No hernias. BONES: No acute findings. OTHER: No other significant finding. IMPRESSION: NO ACUTE FINDINGS IN THE ABDOMEN OR PELVIS ON CT SCAN WITH IV CONTRAST. TECHNICAL DOCUMENTATION: JOB ID: [id number] [place]-72 Quality ID # [id number]: Final reports with documentation of one or more dose reduction techniques (e.g., Au tomated exposure control, adjustment of the mA and/or kV according to patient size, use of iterative reconstruction technique) 2010 [employer]- All Rights Reserved Reading location - IP/workstation name: [email or web address]
[2020-01-26] MEDS ORDERED: HYDROCODONE/ACETAMINOPHEN 5-325 MG (6 TAB/ER DISP) PO PRN (19:45)
== END 2020-01-26 19:53 | disposition home or self-care (01) ==
LOC: ER 16:30
DX: R10.31 Right lower quadrant pain (principal); R11.0 Nausea; Z91.040 Latex allergy status
CPT/HCPCS: 99284; 96361; 96374; 96375; 36415; 83690; 85025; 81025; 80053; 81001; 76830; 93976; 74177; J1885; J2405; J7030

== ENCOUNTER 2020-09-03 11:01 | Emergency (ER) | payer OTHER ==
[2020-09-03 12:09] LABS: ABSOLUTE LYMPHOCYTES (AUTO) 1.3 10^3/uL (0.5-4.7); ABSOLUTE MONOCYTES (AUTO) 0.4 10^3/uL (0.1-1.4); ABSOLUTE NEUT (AUTO) 5.1 10^3/uL (1.7-8.2); BASOPHILS % (AUTO) 0.6 % (0-2); EOSINOPHILS % (AUTO) 0.4 % (0-6); HEMATOCRIT 32.5 % (36.0-47.0); HEMOGLOBIN 10.6 g/dL (12.0-15.5); LYMPHOCYTES % (AUTO) 19.1 % (13-45); MEAN CORPUSCULAR HEMOGLOBIN 19.2 pg (27.0-33.4); MEAN CORPUSCULAR HGB CONC 32.7 g/dL (32.0-36.0); MEAN CORPUSCULAR VOLUME 59 fl (80-97); MONOCYTES % (AUTO) 6.2 % (3-13); PLATELET COUNT 230 10^3/uL (150-450); RED BLOOD COUNT 5.52 10^6/uL (3.72-5.28); SEGMENTED NEUTROPHILS % (AUTO) 73.7 % (42-78); TOTAL CELLS COUNTED % (AUTO) 100 %; WHITE BLOOD COUNT 6.9 10^3/uL (4.0-10.5)
[2020-09-03 12:11] LABS: APPEARANCE,URINE SLIGHTLY-CLOUDY; BILIRUBIN,URINE NEGATIVE (NEGATIVE); COLOR,URINE YELLOW; GLUCOSE, URINE NEGATIVE (NEGATIVE); KETONES,URINE NEGATIVE (NEGATIVE); LEUKOCYTE ESTERASE,URINE NEGATIVE (NEGATIVE); NITRITE,URINE NEGATIVE (NEGATIVE); PROTEIN,URINE NEGATIVE (NEGATIVE); URINE SPECIFIC GRAVITY 1.024
[2020-09-03 12:24] LABS: ALKALINE PHOSPHATASE 28 U/L (38-126); ANION GAP 5 (5-19); ASPARTATE AMINO TRANSFERASE 17 U/L (14-36); BILIRUBIN,TOTAL 2.9 mg/dL (0.2-1.3); BLOOD UREA NITROGEN 13 mg/dL (7-20); CALCIUM 9.5 mg/dL (8.4-10.2); CARBON DIOXIDE 25 mmol/L (22-30); CHLORIDE 107 mmol/L (98-107); GLUCOSE 98 mg/dL (75-110); POTASSIUM 4.1 mmol/L (3.6-5.0); TOTAL PROTEIN 6.7 g/dL (6.3-8.2)
[2020-09-03 12:40] LABS: ANISOCYTOSIS SLIGHT; HYPOCHROMASIA 1+; OVALOCYTES SLIGHT; PLATELET LARGE PRESENT; POLYCHROMASIA 1+; SCHISTOCYTES SLIGHT; TARGET CELLS SLIGHT; TEAR DROP CELLS SLIGHT
[2020-09-03 12:41] LABS: PLATELET COMMENT ADEQUATE
[2020-09-03] MEDS ORDERED: NORMAL SALINE 1000 ML 1,000 ML IV ONE (12:49)
[2020-09-03] MEDS ORDERED: ONDANSETRON HCL INJ/PF 4 MG/2 ML SDV IV ONE (12:49)
[2020-09-03] MEDS ORDERED: MORPHINE SULFATE 10 MG/ML INJ IV ONE ×2 (12:49→15:25)
[2020-09-03] MEDS ORDERED: MORPHINE SULFATE 10 MG/ML INJ IV STA (13:22)
--- NOTE | 2020-09-03 13:25 | ER Document Report ---
Entered by ELIJAH PETERSON SCRIBE 09/03/20 1241 Acting as scribe for:FAUZIA GODINEZ MD ED GI/ - General Chief Complaint: Abdominal Pain Stated Complaint: POSSIBLE CYST Time Seen by Provider: 09/03/20 12:40 Primary Care Provider: JAVIER KENNEDY PA-C [Primary Care Provider] - Follow up as needed Mode of Arrival: Ambulatory Information source: Patient Notes: This 35-year-old female patient presents to the emergency department today with complaints of right-sided pelvic pain. Patient is and she has a history of PCOS. Patient reports experiencing menstrual-like cramps this morning and then abruptly at around 0900 she bent over at work to file some papers and she developed excruciating right lower quadrant pain and it has been present since onset. TRAVEL OUTSIDE OF THE [place] IN LAST 30 DAYS: No - Related Data Allergies/Adverse Reactions: latex [Latex] Allergy (Intermediate, Verified 04/19/13 17:20) Pruritis Home Medications: wellbutrin 300 mg daily Past Medical History - General Information source: Patient - Social History Smoking Status: Never Smoker Cigarette use (# per day): No Chew tobacco use (# tins/day): No Frequency of alcohol use: Occasional Drug Abuse: None Lives with: Family Family History: Reviewed & Not Pertinent Patient has homicidal ideation: No Neurological Medical History: Reports: Hx Migraine Renal/ Medical History: Reports: Hx Ovarian Cysts GI Medical History: Reports: Hx Ulcer Past Surgical History: Reports: Hx Dilation and Curettage, Hx Gynecologic Surgery - Uterine repair - Immunizations Immunizations up to date: Yes Hx Diphtheria, Pertussis, Tetanus Vaccination: Yes Review of Systems - Review of Systems Constitutional: No symptoms reported EENT: No symptoms reported Cardiovascular: No symptoms reported Respiratory: No symptoms reported Gastrointestinal: See HPI, Abdominal pain Genitourinary: No symptoms reported Female Genitourinary: No symptoms reported Musculoskeletal: No symptoms reported Skin: No symptoms reported Hematologic/Lymphatic: No symptoms reported Neurological/Psychological: No symptoms reported -: Yes All other systems reviewed and negative Physical Exam - Vital signs Vitals: Temp Pulse Resp BP Pulse Ox 97.9 F 100 20 102/55 L 94 09/03/20 11:01 09/03/20 11:01 09/03/20 11:01 09/03/20 11:01 09/03/20 11:01 - Notes Notes: Physical Exam: General: Alert, appears very uncomfortable. HEENT: Normocephalic. Atraumatic. PERRL. Extraocular movements intact. Oropharynx clear. Neck: Supple. Non-tender. Respiratory: No respiratory distress. Clear and equal breath sounds bilaterally. Cardiovascular: Regular rate and rhythm. Abdominal: Exquisite tenderness to palpation to right pelvis with guarding and rebound. No distension. Normal Bowel Sounds. Back: No gross abnormalities. Extremities: Moves all four extremities. Upper extremities: Normal inspection. Normal ROM. Lower extremities: Normal inspection. No edema. Normal ROM. Neurological: Normal cognition. AAOx4. Normal speech. Psychological: Normal affect. Normal Mood. Skin: Warm. Dry. Normal color. Course - Re-evaluation Re-evalutation: 09/03/20 15:19 The patient was seen here on 01/26/2020 with similar pains. At that time and ultrasound and CT scan were both unremarkable. Patient reports she followed up with her [employer] doctor who did an ultrasound and diagnosed her as having PCOS as the cause of her discomfort. Today her transvaginal ultrasound is unremarkable. Her lab work is essentially unchanged from what she had on 01/26/2020 with no suggestion of infection. She has called her [employer] doctor and has an appointment for tomorrow morning in the office. She is comfortable with being discharged with pain medication and seeing her [employer] doctor tomorrow. - Vital Signs Vital signs: Temp Pulse Resp BP Pulse Ox 97.9 F 100 20 102/55 L 94 09/03/20 11:01 09/03/20 11:01 09/03/20 11:01 09/03/20 11:01 09/03/20 11:01 - Laboratory Results Result Diagrams: 09/03/20 11:55 09/03/20 11:55 Laboratory Results Interpreted: 09/03/20 09/03/20 09/03/20 11:55 11:55 11:55 RBC 5.52 H Hgb 10.6 L Hct 32.5 L MCV 59 L MCH 19.2 L RDW 15.0 H Total Bilirubin 2.9 H Alkaline Phosphatase 28 L Urine Urobilinogen 2.0 H Critical Laboratory Results Reviewed: No Critical Results - Radiology Results Radiology Results Interpreted: 01/14/21 15:20 Transvaginal ultrasound does not show acute abnormality or explanation for her discomfort. Critical Radiology Results Reviewed: No Critical Results Discharge - Discharge Clinical Impression: Pelvic pain Condition: Stable Disposition: HOME, SELF-CARE Additional Instructions: Pelvic Pain There are many causes of pain in the pelvic area. The cause could be the tubes, ovaries, uterus, intestines, appendix, pelvic muscles and connective tissue, or the urinary tract. The cause of your pelvic pain is not clear. However, it seems safe to treat you outside the hospital. If the pain sounds like a temporary problem, we sometimes wait to see if it goes away. Other patients may need additional tests, such as pelvic ultrasound or cultures. Conditions may change. Call us or come back for reexamination if any problems occur, such as: (1) Pain that becomes more severe, steady, or becomes concentrated in one specific area. Also, pain that is more severe with movement or coughing. (2) Vomiting that persists or becomes more frequent. (3) Blood in the vomitus, urine, or bowel movements. Blood in the stool may have a tarry or black appearance. (4) Shaking chills or fever greater than 100 degrees. (5) The abdomen becomes more distended or swollen. (6) Bowel movements cease. (7) Heavy vaginal bleeding. Take the pain medication as needed this evening. Eat lightly and drink plenty of fluids. Follow-up with your [employer] doctor tomorrow as planned. RETURN TO THE EMERGENCY ROOM IF ANY NEW OR WORSENING SYMPTOMS. Prescriptions: Oxycodone HCl/Acetaminophen [Percocet 5-325 mg Tablet] 1 tab PO ASDIR PRN #12 tablet PRN Reason: Ondansetron [Zofran Odt 4 mg Tablet] 1 - 2 tab PO Q4H PRN #10 tab.rapdis PRN Reason: Forms: Return to Work Referrals: JAVIER KENNEDY PA-C [Primary Care Provider] - Follow up as needed I personally performed the services described in the documentation, reviewed and edited the documentation which was dictated to the scribe in my presence, and it accurately records my words and actions.
--- NOTE | 2020-09-03 14:40 | RADIOLOGY REPORT (SQ) ---
EXAM DESCRIPTION: U/S NON OB PEL TV W/DOPPLER IMAGES COMPLETED DATE/TIME: 09/03/2020 2:30 pm REASON FOR STUDY: R pelvic pain, PCOS COMPARISON: None. TECHNIQUE: Dynamic and static grayscale images acquired of the pelvis via transvaginal approach and recorded on PACS. Additional selected color Doppler and spectral images recorded. LIMITATIONS: None. FINDINGS: UTERUS: Contour normal. No mass. ENDOMETRIAL STRIPE: No focal or generalized thickening. No masses. CERVIX: No nabothian cysts. RIGHT OVARY AND DOPPLER: Normal size. No worrisome masses. Normal arterial vascular flow without evid ence for torsion. LEFT OVARY AND DOPPLER: Normal size. No worrisome masses. Normal arterial vascular flow without evide nce for torsion. FREE FLUID: None noted. OTHER: No other significant finding. IMPRESSION: NORMAL TRANSVAGINAL PELVIC ULTRASOUND. TECHNICAL DOCUMENTATION: JOB ID: [id number] 2010 [employer]- All Rights Reserved Rev-01/05 Reading location - IP/workstation name: [email or web address]
[2020-09-03 15:46] VITALS: BP 130/70
== END 2020-09-03 15:54 | disposition home or self-care (01) ==
LOC: ER 11:01
DX: R10.2 Pelvic and perineal pain (principal); R10.9 Unspecified abdominal pain; R10.31 Right lower quadrant pain; Z88.8 Allergy status to other drugs, medicaments and biological substances; Z79.899 Other long term (current) drug therapy
CPT/HCPCS: 96376; 99285; 96361; 96374; 96375; 36415; 83690; 84703; 85025; 80053; 81001; 76830; 93976; J2270; J2405; J7030